=== PATIENT | male | born 1930 | race Caucasian/White ===

== ENCOUNTER 2018-07-10 21:38 | Inpatient (IN) | payer MEDICARE, OTHER ==
--- NOTE | 2018-07-10 23:36 | RAD ---
CHEST ONE VIEW 07/10/18 HISTORY: Chest pain. COMPARISON: 12/26/08. FINDINGS: Cardiac silhouette is magnified by projection. Pulmonary vasculature is unremarkable. Right hemidiaph ragm is slightly more elevated than on the prior exam. Mediastinum is midline with aortic calcificati on, postoperative changes, and a dual lead left subclavian cardiac electronic device. No lobar consol idation or evidence of pneumothorax. IMPRESSION: Chronic type findings. No active cardiopulmonary abnormalities are demonstrated. POS: [facility]
[2018-07-10 23:45] LABS: INR-International Normal Ratio 1.2; PTT 36.7 SEC (22.9-36.1); Prothrombin Time 15.3 SEC (12.0-14.7)
[2018-07-10 23:56] LABS: ALT (SGPT) 13 U/L (8-55); AST (SGOT) 19 U/L (5-34); Albumin 4.4 g/dL (3.4-4.8); Alkaline Phosphatase 72 U/L (40-150); Anion Gap 12 mmol/L (10-20); BUN (Urea Nitrogen) 20 mg/dL (8.4-25.7); Bilirubin, Total 0.9 mg/dL (0.2-1.2); CK (CPK) 80 U/L (30-200); Calc. Creatinine Clearance 0 mL/min (70-130); Calcium 9.5 mg/dL (7.8-10.44); Carbon Dioxide 30 mmol/L (23-31); Chloride 99 mmol/L (98-107); Estimated GFR-MDRD 46; Globulin 3.2 g/dL (2.4-3.5); Glucose 112 mg/dL (83-110); Potassium 4.5 mmol/L (3.5-5.1); Protein, Total 7.6 g/dL (5.8-8.1); Sodium 136 mmol/L (136-145)
[2018-07-11 00:02] LABS: CKMB 0.5 ng/mL (0-6.6); Troponin I Less than 0.010 ng/mL (< 0.028)
[2018-07-11 00:07] LABS: #Lymphocytes 0.8 thou/uL (1.20-3.40); #Monocytes 0.6 thou/uL (0.11-0.59); #Neutrophils 5.8 thou/uL (1.40-6.50); %Basophils 0.1 % (0.0-1.0); %Eosinophils 0.1 % (0.0-10.0); %Lymphocytes 10.6 % (21.0-51.0); %Monocytes 7.9 % (0.0-10.0); %Neutrophils 81.2 % (42.0-75.0); Hemoglobin 13.1 g/dL (14.0-18.0); Mean Corpuscular HGB CONC 34.2 g/dL (32.0-36.0); Mean Corpuscular Hemoglobin 32.2 pg (27.0-31.0); Mean Platelet Volume 9.2 fL (7.4-10.4); PLT Morphology Comment Appears Decreased; Platelet Count 70 thou/uL (130-400); RBC Morphology Normal; Red Blood Cell (RBC) Count 4.08 mill/uL (4.70-6.10); White Blood Cell (WBC) Count 7.1 thou/uL (4.8-10.8)
[2018-07-11 00:44] LABS: Bilirubin Negative (Negative); Blood, Urine Small (Negative); Clarity CLEAR (Clear); Glucose, Urine (Dipstick) Negative (Negative); Leukocyte Negative (Negative); Nitrite Negative (Negative); Protein, Urine (Dipstick) Negative (Neg-Trace); Specific Gravity, Urine 1.018 (1.002-1.036); Urobilinogen 0.2 mg/dL (0.2-1.0); pH, Urine 5.5 (5.0-9.0)
[2018-07-11 01:06] LABS: Bacteria/HPF None Seen HPF (None Seen); Hyaline Casts/LPF 0-3 HYALINE CAST LPF (0-3 Hyaline); Pathc Cast-AUWi Flag 0.29 (0-2.49); RBC/HPF 0-3 HPF (0-3); Squamous Epithelial 0-3 HPF (0-3); WBC/HPF 0-3 HPF (0-3)
[2018-07-11] MEDS ORDERED: Ondansetron ODT 4 MG TAB SL PRN (02:48)
[2018-07-11] MEDS ORDERED: Ondansetron HCl/PF 4 MG/2 ML Vial IVP PRN (02:48)
[2018-07-11 03:19] VITALS: BMI 20.6
--- NOTE | 2018-07-11 06:35 | HP ---
PRIMARY CARE PHYSICIAN: The patient goes to [facility]. CODE STATUS: FULL CODE. TIME OF EVALUATION: 4:15 a.m. CHIEF COMPLAINT: Numbness to fingertips. HISTORY OF PRESENT ILLNESS: This is an 88-year-old male patient with past medical history of diabete s, hyperlipidemia, hypertension who came to the hospital after having tingling and numbness in his fi ngertips on the left side more than the right side with no clear ____, no alleviating factors. He re ported the symptoms have been on and off. By the time of my interview the symptoms are improved. No significant associated weakness in any of the limbs, symptoms are reported as mild to moderate. REVIEW OF SYSTEMS: CONSTITUTIONAL: No fever, no chills. Generalized weakness. RESPIRATORY: No cough, sputum production, shortness of breath. CARDIOVASCULAR: No chest pain, palpitations, shortness of breath. GASTROINTESTINAL: No nausea, vomiting, diarrhea or abdominal pain. BOBBIN COIL WINDER: No dizziness or headache. The patient has bilateral fingers tingling and numbness. GENITOURINARY: No burning with urination. EXTREMITIES: No leg swelling. All other systems were reviewed and negative except for the findings mentioned above. PAST MEDICAL HISTORY: As mentioned in the HPI. PAST SURGICAL HISTORY: The patient has a pacemaker. PSYCHIATRIC HISTORY: Includes depression. SOCIAL HISTORY: Alcohol rarely. No drug use. No smoking history. ALLERGIES: No known drug allergies. MEDICATIONS: Please see medication reconciliation for details. PHYSICAL EXAMINATION: VITAL SIGNS: On presentation, blood pressure 144/72 with heart rate 65, respiratory rate was 16, tem perature 99.7, oxygen saturation was 94. GENERAL APPEARANCE: The patient is alert, oriented, no acute distress. HEENT: Eyes; normal conjunctivae. Moist oral mucosa. Anicteric. NECK: No JVD. RESPIRATORY: Bilaterally air entry. No rales, no wheezing. Symmetric expansion. CARDIOVASCULAR: Normal rate, regular rhythm. No murmurs, no gallop. No edema. ABDOMEN: Soft, normal bowel sounds. MUSCULOSKELETAL: Baseline range of motion and strength. No tenderness. SKIN: Warm and intact. No pallor, no rash. No redness. Peripheral pulses are present. NEUROLOGIC: Capillary refill is intact. Sensory; no evidence of any new focal weakness, though jose ent does report bilateral tingling in both hands. Cranial nerves seem to be intact. PSYCHIATRIC: The patient is in a good mood, alert and oriented, optimal judgment. EKG was discussed with the performing physician from here. The patient had an atrial fibrillation wi th controlled ventricular response in the rate of 64, some PVCs, atrial paced. Radiology was reviewed. Head CT, possible normal pressure hydrocephalus. Chest x-ray, no acute card iopulmonary findings. LABORATORY DATA: The patient has white count 7.1, hemoglobin 13, MCV 94, platelet count 70. Coagula tion: PT 15.3, INR 1.2, PTT 36.7. Chemistry: Sodium 136, potassium 4.5, chloride 99, carbon dioxid e 30, anion gap 12, BUN 20, creatinine 1.44. No previous values to compare to. Glucose 112, calcium 9.5. LFTs were normal. Troponin is negative. UA was done and was negative. ASSESSMENT AND PLAN: The patient will be placed in the hospital with following medical problems. 1. Possible transient ischemic attack versus lacunar stroke, patient has tingling in both hands, and this did not improving since yesterday, and symptoms have been on and off, undergo a stroke protocol except for the MRIs as the patient has a pacemaker. 2. Hyperlipidemia, reconcile home meds, and a low cholesterol diet is advised. 3. Uncontrolled hypertension. The patient has systolic blood pressure 144 on presentation, will all ow permissive hypertension given new presentation with neurological signs. 4. Borderline diabetes, keeping the patient on sliding scale coverage, adjust medications as needed. 5. Deep venous thrombosis prophylaxis.
--- NOTE | 2018-07-11 07:15 | CT ---
CT HEAD NONCONTRAST DATE: 07/10/18 HISTORY: Altered mental status. Numbness. COMPARISON: 12/26/08. FINDINGS: There is no evidence of acute intracranial hemorrhage or infarct. The ventricular system is slightly distended in relation to the degree of peripheral atrophy. Chronic ischemic small vessel disease with in the periventricular white matter of each cerebral hemisphere. No mass effect or shift of midline s tructures. Visible paranasal sinuses remain well aerated. IMPRESSION: Mild diffuse ventricular prominence without focal abnormality otherwise demonstrated. Clinical correl ation regarding other signs and symptoms of normal pressure hydrocephalus is required. POS: [facility]
[2018-07-11] MEDS ORDERED: Enoxaparin Sodium 40 MG/0.4 ML SYRINGE SC SCH (09:00)
[2018-07-11] MEDS ORDERED: Prevnar 13-Val Conj/PF 0.5 ML SYRINGE IM ONE (09:00)
[2018-07-11 09:30] LABS: #Lymphocytes 0.7 thou/uL (1.20-3.40); #Monocytes 0.7 thou/uL (0.11-0.59); %Basophils 0.5 % (0.0-1.0); %Lymphocytes 9.1 % (21.0-51.0); %Monocytes 9.8 % (0.0-10.0); %Neutrophils 80.6 % (42.0-75.0); Hemoglobin 13.4 g/dL (14.0-18.0); Mean Corpuscular HGB CONC 34.3 g/dL (32.0-36.0); Mean Corpuscular Hemoglobin 32.3 pg (27.0-31.0); Mean Corpuscular Volume 94.3 fL (78.0-98.0); Mean Platelet Volume 9.5 fL (7.4-10.4); Platelet Count 67 thou/uL (130-400); RBC Distribution Width 14.1 % (11.5-14.5); Red Blood Cell (RBC) Count 4.15 mill/uL (4.70-6.10); White Blood Cell (WBC) Count 7.5 thou/uL (4.8-10.8)
[2018-07-11] MEDS: Sodium Chloride 0.9% 1,000 ML IV SCH (09:39)
[2018-07-11] MEDS: Aspirin 325 mg Enteric Coated Tablet PO SCH (09:40)
[2018-07-11] MEDS: Amoxicillin/Potassium Clav 875 MG TAB PO SCH ×2 (09:40→21:02)
[2018-07-11 09:47] LABS: Cardiac Risk 3.3 (Less than 4.5)
--- NOTE | 2018-07-11 12:45 | ULT ---
ULTRASOUND CAROTID DOPPLER: HISTORY: TIA. COMPARISON: None. TECHNIQUE: Real-time, linton scale, and spectral analysis of the extracranial carotid and vertebral arteries. FINDINGS: The vessels are markedly tortuous. Severe atherosclerotic plaque of the right carotid bulge and lowe r volume of calcifications. Elevated peak systolic velocities in the internal carotid arteries on th e right. Elevated peak systolic velocities in the left internal carotid artery. Antegrade flow to both vertebral arteries. Right ICA/CCA ratio is 1.38 and left ICA/CCA ratio is 1.15. IMPRESSION: 50-69% stenosis both internal carotid arteries with severe atherosclerotic plaque. CT angiogram woul d be beneficial. POS: [facility]
--- NOTE | 2018-07-11 14:19 | PDOC.EVN ---
Event Note - Event Note Event Note: Seen and examined.Chart reviewed Admitted for possible stroke. Now with low grade fever without specific source. Add ASA.Check lipid panel.Neurology consult add Augmentin ,send blood aand urine cultures. Check ECHO,carotid US. Low platelets without specific reason. Pt on Eliquis at home but home meds not confirmed.DC Lovenox for now. may need abdomen scan to r/o Hepato-splenomegaly . am labs.
--- NOTE | 2018-07-11 15:14 | PDOC.EVN ---
Event Note - Event Note Event Note: ACP note care discussed with patient;s son Mr Cooper over the phone. Updated about his clinical diagnosis and expected prognosis. Discussed discharge options. he asked me if pt would need to go to a NH or is terminal. I told him that i suspect a CVA and Viral infection and diagnostic studies are underway. Son reports that his father is otherwise very active ,Also reported same by his care provider earlier today in room Remains full code for now as per my discussion with son. Will consult Palliative care team to follow along and addressing goals of care as needed. Total time spent in discussion of ACP goals 17 minutes.
[2018-07-11] MEDS ORDERED: Simvastatin 20 MG TAB PO SCH (21:00)
[2018-07-11] MEDS: Acetaminophen 325 MG TAB PO PRN (21:01)
[2018-07-11] MEDS: Atorvastatin Calcium 10 MG TAB PO SCH (21:02)
--- NOTE | 2018-07-11 23:51 | CON ---
DATE OF CONSULTATION: 07/11/2018 CONSULTING PHYSICIAN: Hospitalist service. IMPRESSION: 1. Possible mild cervical radiculopathy with neck pain and transient tingling in the hand. 2. Age-related microvascular changes of the brain atrophy, resulting in some mild memory difficulties. 3. Hearing loss. PLAN: 1. Continue aspirin 81 mg per day. 2. The patient can be discharged home under the care of his caregiver. Mr. Weaver is an 88-year-old man, who lives with assistance of a caregiver. His 4 years ago. He reports he developed some neck pain on the right side that concerned him. He started feeling some tingling in the fingertips of the hand. This lasted for an indeterminate period of time. He does not recall any radicular pain in the arm, does not recall any numbness of the face or leg, did not note any change in his gait. He admits that he has some balance difficulties for some indeterminate period of time. He had a CT of the brain done, which was reviewed. His carotid Doppler showed 50%-69% stenosis bilaterally. His lab work was all unremarkable. He has had a low-grade temperature of 100.3, but otherwise nothing remarkable has been present. PAST MEDICAL HISTORY: Otherwise, negative. ALLERGIES: None. SOCIAL HISTORY: No tobacco or alcohol use. FAMILY HISTORY: Noncontributory. REVIEW OF SYSTEMS: No complaint of chest pain, shortness of breath, headache, nausea, vomiting, or vertigo. PHYSICAL EXAMINATION: GENERAL: He is a thin elderly gentleman, lying in bed, watching television. HEENT: Pupils are equal. Conjunctivae clear. Oropharynx clear. NECK: No lymphadenopathy. EXTREMITIES: No cyanosis. NEUROLOGIC EXAM: He was alert and cooperative. His hearing was poor. His speech was fluent and clear. He followed commands appropriately. His muscle strength was quite good. Sensation was intact to light touch. He can walk independently. No abnormal movements were seen. LABORATORY STUDIES: EKG shows a paced rhythm. SUMMARY: I do not see any suggestive evidence of normal pressure hydrocephalus or transient ischemic attacks that sounds more like he presented with some mild radicular pain, but advised him to try Aleve as an outpatient. [facility]
[2018-07-12] MEDS: Sodium Chloride 0.9% 1,000 ML IV SCH ×2 (00:43→13:32)
[2018-07-12] MEDS: Acetaminophen 325 MG TAB PO PRN ×4 (04:18→20:53)
[2018-07-12 04:55] LABS: #Neutrophils 5.4 thou/uL (1.40-6.50); %Basophils 0.5 % (0.0-1.0); %Eosinophils 0.4 % (0.0-10.0); %Lymphocytes 13.5 % (21.0-51.0); %Monocytes 12.9 % (0.0-10.0); %Neutrophils 72.7 % (42.0-75.0); Hemoglobin 13.5 g/dL (14.0-18.0); Mean Corpuscular HGB CONC 34.8 g/dL (32.0-36.0); Mean Corpuscular Volume 91.7 fL (78.0-98.0); Mean Platelet Volume 10.9 fL (7.4-10.4); PLT Morphology Comment Appears Decreased; Platelet Count 25 thou/uL (130-400); RBC Distribution Width 14.1 % (11.5-14.5); Red Blood Cell (RBC) Count 4.22 mill/uL (4.70-6.10); White Blood Cell (WBC) Count 7.4 thou/uL (4.8-10.8)
[2018-07-12 05:19] LABS: Anion Gap 17 mmol/L (10-20); BUN (Urea Nitrogen) 22 mg/dL (8.4-25.7); Calc. Creatinine Clearance 38 mL/min (70-130); Calcium 8.9 mg/dL (7.8-10.44); Carbon Dioxide 21 mmol/L (23-31); Chloride 102 mmol/L (98-107); Estimated GFR-MDRD 59; Glucose 96 mg/dL (83-110); Potassium 4.7 mmol/L (3.5-5.1); Sodium 135 mmol/L (136-145)
[2018-07-12] MEDS: Aspirin 325 mg Enteric Coated Tablet PO SCH (08:54)
[2018-07-12] MEDS: Amoxicillin/Potassium Clav 875 MG TAB PO SCH (08:54)
[2018-07-12] MEDS: Lisinopril 10 MG TAB PO SCH (09:36)
[2018-07-12] MEDS ORDERED: Iopamidol 370 76% 100 ML VIAL ONE (10:09)
--- NOTE | 2018-07-12 12:47 | PDOC.PN ---
- Subjective Encounter Start Date: 07/12/18 Encounter Start Time: 12:43 Subjective: feels much better and is aware that he is in Hospital -: wants to be transferred to [facility] d/t insurance reasons -: denies any pain,diarrhea,dysuria - Objective Resuscitation Status: Resuscitation Status DNR:Do Not Resuscitate MAR Reviewed: Yes Vital Signs & Weight: Vital Signs (12 hours) Temp Pulse Resp BP BP Pulse Ox 07/12/18 12:00 99.5 F 63 16 102/53 L 94 L 07/12/18 09:36 112/53 L 07/12/18 08:00 100 F H 68 16 112/53 L 92 L 07/12/18 07:20 98.8 F 67 18 07/12/18 06:15 98.8 F 07/12/18 04:10 100.4 F H 73 18 173/73 H 91 L Weight Admit Weight 139 lb 11.2 oz Weight 139 lb 11.2 oz I&O: 07/11/18 07/12/18 07/13/18 06:59 06:59 06:59 Intake Total 925 300 Balance 925 300 Result Diagrams: 07/12/18 03:48 07/12/18 03:48 Additional Labs: Microbiology 07/11/18 00:25 Urine clean catch Urine Culture - Preliminary Gram Negative Amol Non-Hemolytic Streptococcus Laboratory Tests 07/11/18 09:13 Triglycerides 93 Cholesterol 117 LDL Cholesterol, Calc 63 HDL Cholesterol 35 Radiology Reviewed by me: Yes Phys Exam - Physical Examination Constitutional: NAD HEENT: PERRLA, moist MMs, sclera anicteric, oral pharynx no lesions Neck: no nodes, no JVD, supple, full ROM Respiratory: no wheezing, no rales, no rhonchi, clear to auscultation bilateral Cardiovascular: RRR, no significant murmur Gastrointestinal: soft, non-tender, no distention, positive bowel sounds Musculoskeletal: no edema, pulses present Neurological: non-focal, normal sensation, moves all 4 limbs Psychiatric: normal affect, A&O x 3 Skin: no rash Dx/Plan (1) Fever Code(s): R50.9 - FEVER, UNSPECIFIED Status: Acute (2) Sepsis Code(s): A41.9 - SEPSIS, UNSPECIFIED ORGANISM Status: Acute (3) UTI (urinary tract infection) Status: Acute (4) Thrombocytopenia Code(s): D69.6 - THROMBOCYTOPENIA, UNSPECIFIED Status: Acute (5) FAUSTO (acute kidney injury) Code(s): N17.9 - ACUTE KIDNEY FAILURE, UNSPECIFIED Status: Acute (6) Carotid stenosis Code(s): I65.29 - OCCLUSION AND STENOSIS OF UNSPECIFIED CAROTID ARTERY Status : Chronic Qualifiers: Laterality: bilateral Qualified Code(s): I65.23 - Occlusion and stenosis of bilateral carotid arteries (7) A-fib Code(s): I48.91 - UNSPECIFIED ATRIAL FIBRILLATION Status: Chronic Qualifiers: Atrial fibrillation type: paroxysmal Qualified Code(s): I48.0 - Paroxysmal atrial fibrillation (8) Pacemaker Code(s): Z95.0 - PRESENCE OF CARDIAC PACEMAKER Status: Chronic - Plan continue antibiotics, PT/OT, out of bed/ambulate, DVT proph w/SCDs Suspect UTI w sepsis-change Abx to Levaquin IV. await final CX results -: platelets even lower. was taken off of Lovenox yesterday.baseline unknown -: no overt bleeding.will check A/P CT to r/o hepatosplemomegaly -: other cell lines are intact. Pt on ASA low dose .monitor -: Will need to get CTA head & neck to check for carotids & R/O CVA * .Cont full dose ASA for now. Statin dos eincreased * Pt requesting transfer to [facility] d/t finanacial reasons. HD table. will arrange\ * If stays here, will get imaging as above and AM labs * Home meds reconciled Review of Systems - Review of Systems Constitutional: negative: fever, chills, sweats, weakness, malaise, other ENT: negative: Ear Pain, Ear Discharge, Nose Pain, Nose Discharge, Nose Congestion, Mouth Pain, Mouth Swelling, Throat Pain, Throat Swelling, Other Respiratory: negative: Cough, Dry, Shortness of Breath, Hemoptysis, SOB with Excertion, Pleuritic Pain, Sputum, Wheezing Cardiovascular: negative: chest pain, palpitations, orthopnea, paroxysmal nocturnal dyspnea, edema, light headedness, other Gastrointestinal: negative: Nausea, Vomiting, Abdominal Pain, Diarrhea, Constipation, Melena, Hematochezia, Other Genitourinary: negative: Dysuria, Frequency, Incontinence, Hematuria, Retention , Other Musculoskeletal: negative: Neck Pain, Shoulder Pain, Arm Pain, Back Pain, Hand Pain, Leg Pain, Foot Pain, Other Neurological: negative: Weakness, Numbness, Incoordination, Change in Speech, Confusion, Seizures, Other - Medications/Allergies Allergies/Adverse Reactions: Allergies Allergy/AdvReac Type Severity Reaction Status Date / Time No Known Drug Allergies Allergy Verified 07/11/18 02:46 Medications: Current Medications Acetaminophen (Tylenol) 650 mg PO Q4H PRN PRN Reason: Headache/Fever or Pain Last Admin: 07/12/18 08:54 Dose: 650 mg Aspirin (Ecotrin) 325 mg PO DAILY [facility] Last Admin: 07/12/18 08:54 Dose: 325 mg Atorvastatin Calcium (Lipitor) 10 mg PO HS [facility] Last Admin: 07/11/18 21:02 Dose: 10 mg Sodium Chloride (Normal Saline 0.9%) 1,000 mls @ 75 mls/hr IV .[id number] [facility] Last Admin: 07/12/18 00:43 Dose: 1,000 mls Levofloxacin 500 mg/ Device 100 mls @ 100 mls/hr IVPB 0900 [facility] Last Admin: 07/12/18 09:36 Dose: 100 mls Lisinopril (Zestril) 10 mg PO DAILY [facility] Last Admin: 07/12/18 09:36 Dose: 10 mg Metoprolol Succinate (Toprol Xl) 25 mg PO BID [facility] Last Admin: 07/12/18 09:36 Dose: 25 mg Pantoprazole Sodium (Protonix) 40 mg PO DAILY [facility] Last Admin: 07/12/18 09:36 Dose: 40 mg Sertraline HCl (Zoloft) 50 mg PO DAILY [facility] Last Admin: 07/12/18 09:36 Dose: 50 mg Sodium Chloride (Flush - Normal Saline) 10 ml IVF Q12HR [facility] Last Admin: 07/12/18 08:52 Dose: Not Given Sodium Chloride (Flush - Normal Saline) 10 ml IVF PRN PRN PRN Reason: Saline Flush Trazodone HCl (Desyrel) 50 mg PO HS [facility]
--- NOTE | 2018-07-12 16:07 | CT ---
CT ABDOMEN AND PELVIS WITH CONTRAST: 07/12/18 HISTORY: Cirrhosis. Prostate cancer. COMPARISON: None. FINDINGS: Calcified granulomas right lung base. Extensive coronary artery calcifications. No pericardial effusi on. Posttreatment changes in the pelvis. Moderate diverticular disease sigmoid colon without active curre nt inflammation. Mild submucosal edema of the ascending colon may reflect congestive changes. There is extensive ather osclerotic plaque of the aortoiliac system. Extensive atherosclerotic plaque of the mesenteric vessel s. There is a focal infrarenal abdominal saccular aneurysm measuring up to 2.8 cm with associated dis section at this level, chronic. No hydronephrosis. Punctate calculus superior pole right renal collecting system. There is a hypodens ity hepatic segment 8 around the hepatic vein to the right portal vein incompletely evaluated on this examination. There are severe degenerative facet changes of the lower lumbar spine. Moderate degenerative changes of both hips. The spleen measures 13.5 cm in length. Moderate sized sliding hiatal hernia. IMPRESSION: 1. Moderate splenomegaly. Patent portal vein. 2. Hepatic segment 8 adjacent to the portal vein is a hypodensity with small cluster of adjacent hypodensities that almost appear to be biliary in nature. A nonemergent MRI liver protocol in six mo nths recommended. 3. 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 There is isoattenuating contrast on both the inside and outside of the small intimal flap. This is chronic as there are calcifications a long the margin. 4. Severe atherosclerotic plaque with narrowing of both the superior mesenteric artery and radha c artery origins, greater than 50% narrowing. 5. Submucosal edema of the ascending colon. This may reflect a component of colitis although giv en the lack of adjacent inflammatory changes, congestive changes from portal hypertension versus low grade ischemia is more likely. 6. Nonobstructive calculus inferior pole right renal collecting system. 7. Multiple peripheral hypodensities of the right kidney too small to fully characterize. 8. Small to moderate sliding hiatal hernia. POS: [facility]
--- NOTE | 2018-07-12 16:26 | CT ---
CT BRAIN WITHOUT CONTRAST CT ANGIOGRAM HEAD WITH CONTRAST CT ANGIOGRAM NECK WITH CONTRAST: Date: 07/12/18 HISTORY: CVA. Dizziness. COMPARISON: Ultrasound carotid Doppler from prior day. FINDINGS: CT angiogram of head and neck performed after the intravenous administration of contrast. 3D renderin g provided. CT brain was performed without contrast prior. Mild atrophy. No acute hemorrhage or infarct. No midline shift. These findings are unchanged from yesterday. There are multiple mildly prominent AP window lymph nodes. There are severe emphysematous changes in the lung apices. No acute fracture or malalignment of the cervical spine. The left vertebral artery is dominant. There is absent enhancement of the right vertebral artery at t he level of C4 to its origin. There is a high grade stenosis of the left vertebral artery due to narrowing of the foramen transvers arium at the level of C4. There is a focal area of 50% narrowing of the left vertebral artery at the level of C3 foramen transversarium. Basilar artery is patent. [place] [facility] [place] patent without thrombosis or aneurysm formation. No signif icant stenosis. Origin of both common carotid arteries patent. Both common carotid arteries patent. Using NASCET crit eria, there is approximately 70% narrowing of the proximal left internal carotid artery due to a comb ination of soft and calcific plaque. Remainder of the internal carotid artery is patent. Using NASCET criteria, there is approximately 50% narrowing of the proximal right internal carotid artery due to calcific and soft plaque. IMPRESSION: 1. Multilevel high grade stenosis of the right vertebral artery with complete occlusion from the valentin gin to the mid neck. 2. Multilevel high grade stenosis of the left vertebral artery. 3. Approximately 70% stenosis proximal left internal carotid artery at the carotid bulb for a length of 3.0 mm. 4. Approximately 50% stenosis of the proximal right internal carotid artery at the bifurcation. 5. Severe emphysematous changes. 6. Advanced degenerative changes at the cervical spine. POS: [facility]
--- NOTE | 2018-07-12 18:38 | CON ---
DATE OF CONSULTATION: 07/12/2018 REASON FOR CONSULTATION: Fever. 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 No headaches, visual symptoms, sore throat, odynophagia, dysphagia, no cough or chest pain, no dyspnea, no abdominal pain, diarrhea, or genitourinary symptoms. No joint symptoms. PAST MEDICAL HISTORY: Prostate cancer in remission after prostatectomy in [place], type 2 diabetes, hypertension, AICD placement for management of ischemic cardiomyopathy, coronary bypass graft surgery, COPD. SOCIAL HISTORY: Former smoker, quit in 2001. Retired. Drinks occasionally. ALLERGIES: None. CURRENT MEDICATIONS: Tylenol, Ecotrin, Lipitor, levofloxacin, Zestril, Toprol, Protonix, Zoloft, trazodone. PHYSICAL EXAMINATION: VITAL SIGNS: T-max 102.5 on 07/11/2018. He is now 99.5, BP 102/53, pulse 63, respirations 16, O2 sat 94%. SKIN: Peripheral IV access. No Cuellar catheter. No lymphadenopathy. HEENT: Ocular movements conjugate. Oral cavity normal. Numerous teeth in place with some decay. NECK: Supple, no jugular venous distention. HEART: S1, S2, without murmurs, regular rate. ABDOMEN: Soft, without ascites. No bladder distention or organomegaly. LUNGS: Faint basilar inspiratory crackles, right and left side. No wheezing. EXTREMITIES: No joint inflammatory activity. Pulses are 1+ in dorsalis pedis. Able to move extremities equally. NEUROLOGIC: Cognitive function appears to be intact. LABORATORY DATA: White cell count 7.1, hemoglobin 13, MCV 94, platelets 70,000 , now down to 25,000. We do not have some air evaluated. INR 1.2. Sodium 136 , creatinine 1.44 and 1.17. Liver profile normal. Albumin 4.4, globulin 2.2. Urinalysis with small blood, otherwise normal. Urine culture with gram negative rods and non-hemolytic strep less than 50 and 10 thousand respectively. Two sets of blood culture, no growth thus far. Reports there is an evident abdomen and pelvis CT scan. A CT of [place] angio with contrast and an echocardiogram, the echocardiogram report showed EF 55%. Pacer wire, mild regurgitation in valves. No vegetations. Brain CT and chest x-ray with no acute findings, just chronic findings in the lungs. An abdomen and pelvis CT has been completed. I believe this is a noncontrast study. I looked over the images and did not see any evidence of overt abnormalities. Some kidney cysts. Neurology consultation from this morning with no remarkable findings. ASSESSMENT: Paresthesias in distal right and left hands, more consistent with carpal tunnel syndrome and now with fever, which was identified after admission without obvious source. DISCUSSION: Differential diagnosis includes viral syndrome and not yet disclosed inflammatory intraabdominal process. Urinary tract does not seem to be the source of this fever, but will wait for the final interpretation of the CT scan and I did not see any evidence of stones or obstruction. Sometimes, he may have urinary infections with normal urinalysis, but that is uncommon, usually associated with obstructive lesions. Number of colony-forming units is less than the threshold for diagnosing UTIs. He does have quite significant thrombocytopenia, we do not have a pathologist review of PB smear to evaluate for microangiopathy. The other concern would be with bacteremia associated with AICD infection or colonization. To rule out that we will have to wait on the final results of the blood cultures in the next few days. The last PSA was undetectable and therefore recrudescence of prostate cancer is unlikely. MTDD
[2018-07-12] MEDS: Atorvastatin Calcium 10 MG TAB PO SCH (20:44)
[2018-07-12] MEDS: traZODone HCl 50 MG TAB PO SCH (20:44)
[2018-07-13] MEDS: Acetaminophen 325 MG TAB PO PRN ×3 (00:13→16:53)
[2018-07-13] MEDS: Sodium Chloride 0.9% 1,000 ML IV SCH (00:37)
[2018-07-13 05:13] LABS: Anion Gap 15 mmol/L (10-20); BUN (Urea Nitrogen) 23 mg/dL (8.4-25.7); Calc. Creatinine Clearance 39 mL/min (70-130); Calcium 8.4 mg/dL (7.8-10.44); Carbon Dioxide 22 mmol/L (23-31); Chloride 104 mmol/L (98-107); Estimated GFR-MDRD 59; Glucose 102 mg/dL (83-110); Potassium 3.5 mmol/L (3.5-5.1); Sodium 137 mmol/L (136-145)
[2018-07-13 06:51] LABS: Band 28 % (5-11); Eosinophils 2 % (0-10); Hemoglobin 11.3 g/dL (14.0-18.0); Lymphocytes 13 % (21-51); MDiff Complete? YES; Mean Corpuscular HGB CONC 34.6 g/dL (32.0-36.0); Mean Corpuscular Hemoglobin 32.2 pg (27.0-31.0); Mean Corpuscular Volume 93.1 fL (78.0-98.0); Monocytes 13 % (0-10); Neutrophil 44 % (42-75); PLT Morphology Comment Appears Decreased; Platelet Count 43 thou/uL (130-400); RBC Distribution Width 13.9 % (11.5-14.5); Red Blood Cell (RBC) Count 3.51 mill/uL (4.70-6.10); White Blood Cell (WBC) Count 3.5 thou/uL (4.8-10.8)
[2018-07-13] MEDS: Lisinopril 10 MG TAB PO SCH (08:35)
[2018-07-13] MEDS: Aspirin 325 mg Enteric Coated Tablet PO SCH (08:35)
[2018-07-13] MEDS ORDERED: Aspirin 81 mg Enteric Coated Tablet PO SCH (11:30)
--- NOTE | 2018-07-13 11:32 | PDOC.PN ---
- Subjective Encounter Start Date: 07/13/18 (f/u tingling) Encounter Start Time: 11:30 Subjective: Pt without complaints today - reports the tingling is improved, nearly -: resolved. States his right shoulder hurts - known, and low back - -: which occurs intermittently in the past. - Objective Resuscitation Status: Resuscitation Status DNR:Do Not Resuscitate Vital Signs & Weight: Vital Signs (12 hours) Temp Pulse Resp BP BP Pulse Ox 07/13/18 08:35 112/53 L 07/13/18 08:00 97.7 F 63 16 07/13/18 07:56 97.7 F 63 16 155/66 H 90 L 07/13/18 03:35 99.2 F 60 14 135/60 91 L 07/13/18 00:20 100.2 F H 59 L 14 135/60 91 L Weight Admit Weight 139 lb 11.2 oz Weight 139 lb 11.2 oz I&O: 07/12/18 07/13/18 07/14/18 06:59 06:59 06:59 Intake Total 925 1775 Balance 925 1775 Result Diagrams: 07/13/18 04:13 07/13/18 04:13 Additional Labs: Accuchecks 07/13/18 06:19 POC Glucose 84 EKG Reviewed by me: Yes (tele sinus a pacing 60's) Phys Exam - Physical Examination Constitutional: NAD Respiratory: no wheezing, no rales, no rhonchi distant heart sounds Cardiovascular: RRR, no significant murmur distant heart sounds Gastrointestinal: soft, non-tender, no distention, positive bowel sounds Musculoskeletal: no edema ttp along the bilateral lower lumbar parsaspinal muscles no ttp along the lumbar spinous processes Neurological: non-focal, moves all 4 limbs Psychiatric: normal affect Deviation from normal: tearing of skin on left elbow Dx/Plan (1) FAUSTO (acute kidney injury) Code(s): N17.9 - ACUTE KIDNEY FAILURE, UNSPECIFIED Status: Resolved (2) Fever Code(s): R50.9 - FEVER, UNSPECIFIED Status: Acute Qualifiers: Encounter type: subsequent encounter (3) Thrombocytopenia Code(s): D69.6 - THROMBOCYTOPENIA, UNSPECIFIED Status: Acute (4) Carotid stenosis Code(s): I65.29 - OCCLUSION AND STENOSIS OF UNSPECIFIED CAROTID ARTERY Status : Chronic Qualifiers: Laterality: bilateral Qualified Code(s): I65.23 - Occlusion and stenosis of bilateral carotid arteries (5) Diabetes mellitus Code(s): E11.9 - TYPE 2 DIABETES MELLITUS WITHOUT COMPLICATIONS Status: Chronic Qualifiers: Diabetes mellitus type: type 2 Diabetes mellitus termite control servicer insulin use: without fci use Diabetes mellitus complication status: without complication Qualified Code(s): E11.9 - Type 2 diabetes mellitus without complications (6) Dyslipidemia Code(s): E78.5 - HYPERLIPIDEMIA, UNSPECIFIED Status: Chronic (7) Hypertension Code(s): I10 - ESSENTIAL (PRIMARY) HYPERTENSION Status: Chronic Qualifiers: Hypertension type: essential hypertension Qualified Code(s): I10 - Essential (primary) hypertension (8) Pancytopenia Code(s): D61.818 - OTHER PANCYTOPENIA Status: Acute - Plan * Appreciate ID consult - follow cultures, will continue levaquin and change to PO, monitor fever curve * Carotid disease - reviewed study with [facility] and carotids are patent - no intervention indicated * Thrombocytopenia - consult Heme. Will d/c aspirin for now as platelets are only 43k. Of note, pt with pancytopenia today - this may be related to viral process vs antibiotic effect. Recheck in AM. * constipation - start colace bid * d/c IVF as taking PO * nocturnal leg cramps - trial of magnesium at night * Ucx with contaminant, and blood cx negative so far. * * dvt prophy - scds * gi prophy - not indicated. * code status DNR * * reviewed plan of care with patient and his son, no questions or furthr needs at end of eval. * Pt remains at high risk in current condition
--- NOTE | 2018-07-13 20:24 | EKG ---
Test Reason : AMS Blood Pressure : / mmHG Vent. Rate : 064 BPM Atrial Rate : 064 BPM P-R Int : 234 ms QRS Dur : 096 ms QT Int : 414 ms P-R-T Axes : 072 045 -37 degrees QTc Int : 427 ms Atrial-paced rhythm with prolonged AV conduction with Premature atrial complexes with Abberant conduc tion Septal infarct , age undetermined Abnormal ECG Confirmed by MI MARQUEZ DO ([id number]), film editor supervisor ARIADNE IRVING ([id number]) on 07/13/2018 8:23:30 PM Referred By: JIMMY Confirmed By:MI MARQUEZ DO
[2018-07-13] MEDS: Atorvastatin Calcium 10 MG TAB PO SCH (21:21)
[2018-07-13] MEDS: traZODone HCl 50 MG TAB PO SCH (21:22)
[2018-07-13] MEDS: Docusate 100 MG CAP PO SCH (21:22)
[2018-07-13] MEDS: Magnesium Oxide 400 MG TAB PO SCH (21:22)
[2018-07-14] MEDS: Acetaminophen 325 MG TAB PO PRN ×2 (00:43→21:57)
[2018-07-14 04:43] LABS: Anion Gap 14 mmol/L (10-20); BUN (Urea Nitrogen) 20 mg/dL (8.4-25.7); Calc. Creatinine Clearance 40 mL/min (70-130); Calcium 8.4 mg/dL (7.8-10.44); Carbon Dioxide 23 mmol/L (23-31); Chloride 104 mmol/L (98-107); Estimated GFR-MDRD 62; Glucose 117 mg/dL (83-110); Potassium 3.5 mmol/L (3.5-5.1); Sodium 137 mmol/L (136-145)
[2018-07-14 06:35] LABS: Band 5 % (5-11); Eosinophils 1 % (0-10); Hemoglobin 10.8 g/dL (14.0-18.0); Lymphocytes 29 % (21-51); MDiff Complete? YES; Mean Corpuscular HGB CONC 35.2 g/dL (32.0-36.0); Mean Corpuscular Hemoglobin 32.5 pg (27.0-31.0); Mean Corpuscular Volume 92.3 fL (78.0-98.0); Mean Platelet Volume 10.4 fL (7.4-10.4); Monocytes 21 % (0-10); Neutrophil 37 % (42-75); PLT Morphology Comment Appears Decreased; Platelet Count 42 thou/uL (130-400); Reactive Lymphocytes 7 % (0-10); Red Blood Cell (RBC) Count 3.31 mill/uL (4.70-6.10); White Blood Cell (WBC) Count 3.2 thou/uL (4.8-10.8)
[2018-07-14] MEDS: Lisinopril 10 MG TAB PO SCH (08:26)
[2018-07-14] MEDS: Docusate 100 MG CAP PO SCH ×2 (08:26→21:54)
[2018-07-14] MEDS ORDERED: Aspirin 81 mg Enteric Coated Tablet PO SCH (09:00)
[2018-07-14] MEDS ORDERED: Polyethylene Glycol 3350 17 GM Packet PO PRN (10:25)
--- NOTE | 2018-07-14 10:25 | PDOC.PN ---
- Subjective Encounter Start Date: 07/14/18 (f/u fever) Encounter Start Time: 10:21 Subjective: Pt notes times of hallucinations, states it's when he has fevers -: denies any cp/sob/cough/n/v/abd pain or any new sx - Objective Resuscitation Status: Resuscitation Status DNR:Do Not Resuscitate Vital Signs & Weight: Vital Signs (12 hours) Temp Pulse Resp BP BP Pulse Ox 07/14/18 08:26 112/53 L 07/14/18 08:00 98.6 F 60 16 07/14/18 07:38 98.6 F 60 16 137/63 91 L 07/14/18 06:00 99.4 F 60 16 141/63 H 92 L 07/14/18 02:05 98.7 F 07/14/18 00:00 100.5 F H 60 18 161/70 H 93 L Weight Admit Weight 139 lb 11.2 oz Weight 139 lb 11.2 oz I&O: 07/13/18 07/14/18 07/15/18 06:59 06:59 06:59 Intake Total 1775 1136 840 Balance 1775 1136 840 Result Diagrams: 07/14/18 03:38 07/14/18 03:38 Additional Labs: Accuchecks 07/13/18 17:23 POC Glucose 105 EKG Reviewed by me: Yes (tele - 80's sinus occ PVC's) Phys Exam - Physical Examination Constitutional: NAD Respiratory: no wheezing, no rales, no rhonchi, clear to auscultation bilateral Cardiovascular: RRR, no significant murmur Gastrointestinal: soft, non-tender, no distention, positive bowel sounds Musculoskeletal: no edema Neurological: non-focal, moves all 4 limbs Psychiatric: normal affect, A&O x 3 Skin: no rash Dx/Plan (1) FAUSTO (acute kidney injury) Code(s): N17.9 - ACUTE KIDNEY FAILURE, UNSPECIFIED Status: Resolved (2) Fever Code(s): R50.9 - FEVER, UNSPECIFIED Status: Acute Qualifiers: Encounter type: subsequent encounter (3) Carotid stenosis Code(s): I65.29 - OCCLUSION AND STENOSIS OF UNSPECIFIED CAROTID ARTERY Status : Chronic Qualifiers: Laterality: bilateral Qualified Code(s): I65.23 - Occlusion and stenosis of bilateral carotid arteries (4) Diabetes mellitus Code(s): E11.9 - TYPE 2 DIABETES MELLITUS WITHOUT COMPLICATIONS Status: Chronic Qualifiers: Diabetes mellitus type: type 2 Diabetes mellitus senior living insulin use: without ferry terminal agent use Diabetes mellitus complication status: without complication Qualified Code(s): E11.9 - Type 2 diabetes mellitus without complications (5) Dyslipidemia Code(s): E78.5 - HYPERLIPIDEMIA, UNSPECIFIED Status: Chronic (6) Hypertension Code(s): I10 - ESSENTIAL (PRIMARY) HYPERTENSION Status: Chronic Qualifiers: Hypertension type: essential hypertension Qualified Code(s): I10 - Essential (primary) hypertension (7) Pancytopenia Code(s): D61.818 - OTHER PANCYTOPENIA Status: Acute - Plan * * Appreciate ID consult - cx negative, no acute findings on CT scan, will check with Dr. Cisneros re: d/c geovanna. Manage fever and monitor mental status. * D/w Dr. Cisneros - can d/c levgatito. Pt being started on doxycycline due to other possible infections that may be causing hypersplenism. * * Carotid disease - reviewed study with [facility] and carotids are patent - no intervention indicated * * Pancytopenia - WBC stable - may be from either source of fever or same cause as thrombocytopenia. Heme consult for today. * * constipation - continue colace bid * nocturnal leg cramps - continue magnesium at night * Ucx repeated after abx - no growth so far, and blood cx negative at 72 hours * * dvt prophy - scds * gi prophy - not indicated. * code status DNR * * reviewed plan of care with patient, no questions or further needs at end of eval. * Pt remains at high risk in current condition.
[2018-07-14 12:00] LABS: Hep C IgG Ab Non-Reactive (NonReactive); Hep C Index 0.31 S/CO (0-0.79)
--- NOTE | 2018-07-14 12:49 | CON ---
DATE OF CONSULTATION: 07/14/2018. HISTORY OF PRESENT ILLNESS: Mr. Weaver is an 88-year-old male who presented with confusion as well a s numbness in his fingertips. He was not taken his temperature at home, but he thinks he had a fever at home and this may be the cause of the symptoms. He was brought in by his caregiver he says, alth ough he says that he would have preferred to go to the [facility] system because all of his phys icians are at [facility]. On admission, there was some concern that he might had a TIA; however , he has had recurrent low grade fevers and that is the cause for the numbness in his fingers as well as the confusion. He states he is less confused today, although he is disoriented to place. He christian s know the date and he does know his name. He is able to give me a good history and states that he h as never been told in the past that he had thrombocytopenia; however, on admission his platelets were 70,000. We have no old blood counts on him. He did get IV resuscitated and his platelets went down to 25,000, now they are up to 42,000. He denies any bleeding. He has had ecchymoses on his upper e xtremities, but states this is chronic and he has had this for years. He does take aspirin as an out patient, although this is being held on admission here. He did get at least one dose of low dose pro phylactic Lovenox, but this has also been discontinued here. He denies any nosebleeds. No gum bleed ing. No rectal bleeding and no hematuria. He denies any ecchymoses anywhere other than his upper ex tremities. PAST MEDICAL HISTORY: 1. Diabetes mellitus. 2. Possible dementia, although this appears to be somewhat unlikely and we do not have this confirme d. 3. Hyperlipidemia. 4. Hypertension. CURRENT MEDICATIONS: 1. Tylenol p.r.n. 2. Lipitor 10 mg p.o. at bedtime. 3. Colace 100 mg p.o. b.i.d. 4. Doxycycline 100 mg p.o. b.i.d. 5. Lactulose 20 grams p.o. every day p.r.n. 6. Zestril 10 mg p.o. daily. 7. Magnesium oxide 400 mg p.o. at bedtime. 8. Toprol-XL 25 mg p.o. b.i.d. 9. Protonix 40 mg p.o. daily. 10. MiraLax p.r.n. 11. Zoloft 50 mg p.o. daily. 12. Trazodone 50 mg p.o. at bedtime. ALLERGIES: No known drug allergies. SOCIAL HISTORY: He states he lives alone. He denies current tobacco or alcohol use. Apparently, hi s son is quite supportive and has called multiple times. He does admit to having a caregiver who bro ught him to the hospital. FAMILY HISTORY: Negative for hematologic malignancy as far as the patient knows. REVIEW OF SYSTEMS: Otherwise, 10-point review of systems is negative. The patient is quite insisten t that he feels well and would like to go home. PHYSICAL EXAMINATION: VITAL SIGNS: T-max 100.5, T-current 98.6, pulse 60, respirations 16, O2 sat 91% on room air, blood p ressure 137/63. GENERAL: He is alert, awake, and oriented x2, he is not quite sure of the location, but he does note that he is not at [facility] and would like to be at [facility], because that is where all his records are. CARDIOVASCULAR: Regular rhythm. LUNGS: Clear to auscultation. ABDOMEN: Hypoactive bowel sounds. Soft, nontender, nondistended. EXTREMITIES: No edema. No petechia. Multiple ecchymoses noted on his left and right upper extremit y, greater on the left. These may be from blood draws. There are no ecchymoses noted on his trunk o r on his lower extremities. LABORATORY DATA: White blood cell count 7.1 on admission, now 3.2, hemoglobin 13.1 on admission, now 10.8, platelets 70,000 on admission, now 42,000. No schistocytes seen on his peripheral smear. Karthik trophils 37%, bands 5%, lymphocytes 29%, monocytes 21%. ASSESSMENT: Mr. Weaver is an 88-year-old male. 1. Thrombocytopenia, this is likely to be chronic. 2. Pancytopenia after IV hydration. 3. Low-grade fever with delirium. PLAN: 1. I reviewed the peripheral smear with the lab and there are no signs of microangiopathic changes. I think this does rule out TTP. He has no signs of schistocytes on his smear. Likewise, he has ravi kopenia now, but I think some of this is delusional. I suspect if we can get old blood counts from [facility] that his thrombocytopenia is chronic. We will request these. He does not have any si gns of HIT as his platelets were low on the day of admission and he has not been hospitalized recentl y according to his history. He may in fact have early myelodysplastic syndrome, but again knowing ho w chronic the thrombocytopenia, it would be important and we will request these blood counts. 2. He is being seen by Infectious Disease and his antibiotics are being changed accordingly. 3. I think he will need follow up for this as an outpatient as I think it is more of a chronic probl em. I think he would like to be seen in the [facility] and I have talked to the case manag emrik about making him a follow up within a week to 10 days of discharge from here. 4. We will follow his platelets while he is in house to make sure they did not get any lower. 5. I would avoid any medications that lower platelets on this hospitalization if possible. 6. Discontinue aspirin for platelets consistently less than 50. 7. He is not on any Lovenox, but is ambulating and is using sequential compression devices while in the bed. I discussed the importance of this with the nurses.
[2018-07-14 14:02] LABS: Reference Lab Name LABCORP
[2018-07-14 14:03] LABS: Ref Lab Test Ordered EHRILCHIA/ ANAPLASMA; Reference Lab Name LABCORP
[2018-07-14 14:04] LABS: Ref Lab Test Ordered RICKETSIA IgG/IgM
--- NOTE | 2018-07-14 16:04 | PRG ---
DATE OF SERVICE: 07/14/2018 SUBJECTIVE: Mr. Weaver is in no acute distress, little bit of hallucinations. No headaches, no shor tness of breath, no abdominal pain. No diarrhea. PHYSICAL EXAMINATION: VITAL SIGNS: T-max 99.4-100.5, currently 98.6, blood pressure 130/60, pulse 60, O2 sat 93%, which i s about average. GENERAL: The exam demonstrates normal skin. LUNGS: Sounds are clear. HEART EXAM: Normal without murmurs. Regular rate. ABDOMEN: Soft, nontender. No edema. Oriented LABORATORY DATA AND IMAGING: White cell count 3.2, hemoglobin 10.8, MCV 92, platelets 42,000, which is up from 07/12/2018. Chemistry with creatinine of 1.11, glucose 117. Liver profile normal. Hepat itis C nonreactive. Microbiology with repeat urine cultures, no growth at 24 hours. Blood culture n egative. Abdomen and pelvis CT, interpretation has been transcribed. Moderate splenomegaly, portal vein appeared patent, hypodensity in the hepatic segment portal vein, small cluster of adjacent hypodensities. An MRI of the liver is recommended in a few months for followup. Submucosal edema i n ascending colon noted, congestive changes from portal hypertension are considered. 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 Again, differential d iagnosis includes AICD, bacterial colonization versus acquired infection such as intracellular bacter ia including Rickettsia, Ehrlichia, Anaplasma versus chronic liver disease with portal hypertension, splenomegaly, hypersplenism and thrombocytopenia, leukopenia. Submit hepatitis serology, wait on fin al results of blood cultures. Start doxycycline and submit serologies for intracellular bacteria.
[2018-07-14] MEDS: traZODone HCl 50 MG TAB PO SCH (21:54)
[2018-07-14] MEDS: Magnesium Oxide 400 MG TAB PO SCH (21:54)
[2018-07-14] MEDS: Atorvastatin Calcium 10 MG TAB PO SCH (21:54)
[2018-07-14] MEDS: Doxycycline 100 MG CAP PO SCH (21:55)
[2018-07-15 04:42] LABS: Anion Gap 14 mmol/L (10-20); BUN (Urea Nitrogen) 19 mg/dL (8.4-25.7); Calc. Creatinine Clearance 40 mL/min (70-130); Calcium 8.6 mg/dL (7.8-10.44); Carbon Dioxide 25 mmol/L (23-31); Chloride 104 mmol/L (98-107); Estimated GFR-MDRD 62; Glucose 98 mg/dL (83-110); Potassium 3.7 mmol/L (3.5-5.1); Sodium 139 mmol/L (136-145)
[2018-07-15 05:53] LABS: Band 2 % (5-11); Eosinophils 5 % (0-10); Hemoglobin 11.3 g/dL (14.0-18.0); Lymphocytes 38 % (21-51); MDiff Complete? YES; Mean Corpuscular HGB CONC 34.9 g/dL (32.0-36.0); Mean Corpuscular Hemoglobin 32.1 pg (27.0-31.0); Mean Platelet Volume 9.9 fL (7.4-10.4); Monocytes 14 % (0-10); Neutrophil 41 % (42-75); PLT Morphology Comment Appears Decreased; Platelet Count 66 thou/uL (130-400); RBC Distribution Width 13.6 % (11.5-14.5); Red Blood Cell (RBC) Count 3.53 mill/uL (4.70-6.10); White Blood Cell (WBC) Count 3.4 thou/uL (4.8-10.8)
--- NOTE | 2018-07-15 09:03 | PDOC.PN ---
- Subjective Encounter Start Date: 07/15/18 Encounter Start Time: 09:01 Subjective: alert, oriented, no complaints - Objective Resuscitation Status: Resuscitation Status DNR:Do Not Resuscitate MAR Reviewed: Yes Vital Signs & Weight: Vital Signs (12 hours) Temp Pulse Resp BP Pulse Ox 07/15/18 07:46 98.6 F 61 16 119/56 L 93 L 07/15/18 04:00 98.7 F 60 18 143/65 H 92 L 07/15/18 02:00 98.6 F 60 18 141/65 H 90 L 07/14/18 21:54 99.5 F 60 18 164/72 H 93 L Weight Admit Weight 139 lb 11.2 oz Weight 139 lb 11.2 oz I&O: 07/14/18 07/15/18 07/16/18 06:59 06:59 06:59 Intake Total 1136 1200 Balance 1136 1200 Result Diagrams: 07/15/18 04:05 07/15/18 04:05 Phys Exam - Physical Examination Neck: no JVD Respiratory: clear to auscultation bilateral Cardiovascular: RRR, no significant murmur Gastrointestinal: soft, positive bowel sounds Musculoskeletal: no edema Neurological: non-focal Dx/Plan (1) Fever Code(s): R50.9 - FEVER, UNSPECIFIED Status: Acute Qualifiers: Encounter type: subsequent encounter (2) Pancytopenia Code(s): D61.818 - OTHER PANCYTOPENIA Status: Acute (3) UTI (urinary tract infection) Status: Acute (4) A-fib Code(s): I48.91 - UNSPECIFIED ATRIAL FIBRILLATION Status: Chronic Qualifiers: Atrial fibrillation type: paroxysmal Qualified Code(s): I48.0 - Paroxysmal atrial fibrillation (5) Carotid stenosis Code(s): I65.29 - OCCLUSION AND STENOSIS OF UNSPECIFIED CAROTID ARTERY Status : Chronic Qualifiers: Laterality: bilateral Qualified Code(s): I65.23 - Occlusion and stenosis of bilateral carotid arteries (6) Diabetes mellitus Code(s): E11.9 - TYPE 2 DIABETES MELLITUS WITHOUT COMPLICATIONS Status: Chronic Qualifiers: Diabetes mellitus type: type 2 Diabetes mellitus director long term care insulin use: without halfway use Diabetes mellitus complication status: without complication Qualified Code(s): E11.9 - Type 2 diabetes mellitus without complications (7) Dyslipidemia Code(s): E78.5 - HYPERLIPIDEMIA, UNSPECIFIED Status: Chronic (8) Hypertension Code(s): I10 - ESSENTIAL (PRIMARY) HYPERTENSION Status: Chronic Qualifiers: Hypertension type: essential hypertension Qualified Code(s): I10 - Essential (primary) hypertension - Plan confusing picture. discuss with Dr Cisneros -: cont doxycycline -: cont [place]/ statin -: cont off ASA * .
[2018-07-15] MEDS: Doxycycline 100 MG CAP PO SCH ×2 (09:25→21:00)
[2018-07-15] MEDS: Docusate 100 MG CAP PO SCH ×2 (09:29→21:00)
[2018-07-15] MEDS: Lisinopril 10 MG TAB PO SCH (09:30)
[2018-07-15] MEDS: traZODone HCl 50 MG TAB PO SCH (21:00)
[2018-07-15] MEDS: Atorvastatin Calcium 10 MG TAB PO SCH (21:00)
[2018-07-15] MEDS: Magnesium Oxide 400 MG TAB PO SCH (21:00)
[2018-07-16 04:42] LABS: Hemoglobin 11.3 g/dL (14.0-18.0); Mean Corpuscular HGB CONC 34.1 g/dL (32.0-36.0); Mean Corpuscular Hemoglobin 31.3 pg (27.0-31.0); Mean Corpuscular Volume 91.5 fL (78.0-98.0); Mean Platelet Volume 9.3 fL (7.4-10.4); Platelet Count 87 thou/uL (130-400); RBC Distribution Width 13.7 % (11.5-14.5); Red Blood Cell (RBC) Count 3.61 mill/uL (4.70-6.10); White Blood Cell (WBC) Count 4.3 thou/uL (4.8-10.8)
[2018-07-16] MEDS: Doxycycline 100 MG CAP PO SCH ×2 (08:49→21:32)
[2018-07-16] MEDS: Lisinopril 10 MG TAB PO SCH (08:50)
[2018-07-16] MEDS: Docusate 100 MG CAP PO SCH ×2 (08:50→21:32)
--- NOTE | 2018-07-16 09:33 | PDOC.PN ---
- Subjective Encounter Start Date: 07/16/18 Encounter Start Time: 09:31 Subjective: feels much better, up and about - Objective Resuscitation Status: Resuscitation Status DNR:Do Not Resuscitate MAR Reviewed: Yes Vital Signs & Weight: Vital Signs (12 hours) Temp Pulse Resp BP BP BP Pulse Ox 07/16/18 08:50 152/65 H 07/16/18 07:59 98.3 F 60 12 152/65 H 92 L 07/16/18 03:43 99.5 F 62 16 173/74 H 92 L 07/16/18 00:44 99.5 F 60 18 164/69 H 92 L Weight Admit Weight 139 lb 11.2 oz Weight 139 lb 11.2 oz I&O: 07/15/18 07/16/18 07/17/18 06:59 06:59 06:59 Intake Total 1200 540 Balance 1200 540 Result Diagrams: 07/16/18 03:49 07/15/18 04:05 Phys Exam - Physical Examination Neck: no JVD Respiratory: clear to auscultation bilateral Cardiovascular: no significant murmur, irregular Gastrointestinal: soft, non-tender, positive bowel sounds Musculoskeletal: no edema Dx/Plan (1) Fever Code(s): R50.9 - FEVER, UNSPECIFIED Status: Acute Qualifiers: Encounter type: subsequent encounter (2) Pancytopenia Code(s): D61.818 - OTHER PANCYTOPENIA Status: Acute (3) UTI (urinary tract infection) Status: Acute (4) A-fib Code(s): I48.91 - UNSPECIFIED ATRIAL FIBRILLATION Status: Chronic Qualifiers: Atrial fibrillation type: paroxysmal Qualified Code(s): I48.0 - Paroxysmal atrial fibrillation (5) Carotid stenosis Code(s): I65.29 - OCCLUSION AND STENOSIS OF UNSPECIFIED CAROTID ARTERY Status : Chronic Qualifiers: Laterality: bilateral Qualified Code(s): I65.23 - Occlusion and stenosis of bilateral carotid arteries (6) Diabetes mellitus Code(s): E11.9 - TYPE 2 DIABETES MELLITUS WITHOUT COMPLICATIONS Status: Chronic Qualifiers: Diabetes mellitus type: type 2 Diabetes mellitus watermelon harvesting supervisor insulin use: without watermelon harvesting supervisor use Diabetes mellitus complication status: without complication Qualified Code(s): E11.9 - Type 2 diabetes mellitus without complications (7) Dyslipidemia Code(s): E78.5 - HYPERLIPIDEMIA, UNSPECIFIED Status: Chronic (8) Hypertension Code(s): I10 - ESSENTIAL (PRIMARY) HYPERTENSION Status: Chronic Qualifiers: Hypertension type: essential hypertension Qualified Code(s): I10 - Essential (primary) hypertension - Plan pancytopenia improving steadily, no recurrence of fever- cont doxycycline -: discuss with ID * .
[2018-07-16] MEDS: Atorvastatin Calcium 10 MG TAB PO SCH (21:32)
[2018-07-16] MEDS: traZODone HCl 50 MG TAB PO SCH (21:32)
[2018-07-16] MEDS: Magnesium Oxide 400 MG TAB PO SCH (21:32)
[2018-07-17 05:55] LABS: Hemoglobin 11.7 g/dL (14.0-18.0); Mean Corpuscular HGB CONC 33.3 g/dL (32.0-36.0); Mean Corpuscular Volume 93.3 fL (78.0-98.0); Mean Platelet Volume 9.2 fL (7.4-10.4); Platelet Count 122 thou/uL (130-400); RBC Distribution Width 13.8 % (11.5-14.5); Red Blood Cell (RBC) Count 3.75 mill/uL (4.70-6.10); White Blood Cell (WBC) Count 5.5 thou/uL (4.8-10.8)
[2018-07-17] MEDS: Docusate 100 MG CAP PO SCH (08:10)
[2018-07-17] MEDS: Lisinopril 10 MG TAB PO SCH (08:10)
[2018-07-17] MEDS: Doxycycline 100 MG CAP PO SCH (08:10)
--- NOTE | 2018-07-17 08:44 | DIS ---
TRANSFER OF CARE NOTE PRIMARY CARE PROVIDER: Dr. Madden at [facility]. He is not sure who at [facility] takes car e of him now. DATE OF ADMISSION: 07/11/2018 DATE OF DISCHARGE: 07/17/2018 FINAL DIAGNOSES: 1. A rickettsial infection. 2. Pancytopenia. 3. Hypertension. 4. Dyslipidemia. 5. Atrial fibrillation. DISCHARGE MEDICATIONS: New doxycycline 100 mg p.o. b.i.d. x14 days, aspirin 81 mg a day, Lipitor 10 mg a day, lisinopril 10 mg a day, trazodone 50 mg at bedtime, Protonix 40 mg a day, Zoloft 50 mg a da y, Toprol 25 mg p.o. b.i.d. ALLERGIES: None. DIET: Heart healthy. PENDING AT THE TIME OF DISCHARGE: Rickettsial titers. CODE STATUS: DNR. HOSPITAL COURSE: The patient admitted out of the emergency room at [place] to the [facility] with numbness in the fingertips. He was felt to have a transient ischemic attack, placed in the hospital. Brain CT, no acute intracranial lesion. Chest x-ray; no acute cardiorespiratory fi ndings. Carotid Doppler 59-70% stenosis of both carotid arteries. In 24 hours he was noted to have a low grade temperature, thrombocytopenia. Echo was ordered. Augmentin was started. CT of the abdo men and pelvis on 07/12/2018 showed moderate splenomegaly, patent portal vein. Initial laboratory: White count 7.1, hemoglobin 13.1, platelet count low at 70,000. Blood cultures were ordered, which were no growth. Urine culture revealed nonhemolytic Streptococci gram negative r od, not quantitated, because if it was polymicrobial. CT angiography of the brain was done which rev ealed stenosis of right vertebral artery, left vertebral artery, 70% stenosis of left internal caroti d artery, 50% stenosis of right internal carotid artery. The patient had temperatures early of 100.5 and 100.5. Serial laboratory revealed a progressive pancytopenia with a low platelet count of 25,00 0 on 07/12/2018. White count dropped to 3.2 on 07/14/2018. On 07/11/2018 he was seen in consultatio n by Dr. Zachariah Del Rio who do not see any evidence for TIA are normal pressure hydrocephalus. He was seen by ALEXANDRO Paniagua, who recommended consultation with Hematology who saw no acute hematology probl em. The patient continued to improve. The patient's pancytopenia continued to improve. He is afebr ile. He is doing well. He is desirous of going home. He is being discharged on 2 weeks of antimicr obial therapy with doxycycline. He has been advised to follow up with his PCP in 1 week, he will nee d a CBC at that time. His blood cultures have been negative. His serology is nonreactive for hepati tis C. Miscellaneous rickettsial titers are pending. No procedures were done.
[2018-07-17 11:55] VITALS: TEMP 97.3
[2018-07-17 12:55] VITALS: BP 155/68
[2018-07-17 13:16] LABS: Hep B Surface AG-Rflx Sendout Negative (Negative); Hepatitis B Core IgM AB Negative (Negative); Hepatitis B Core Total Negative (Negative); Hepatitis B Surface AB-Sendout Non Reactive (.)
== END 2018-07-17 13:33 | disposition home or self-care (01) | DRG 868 ==
LOC: ERS 21:38 → INTOOBSV 07-11 00:15 → 2SE 07-11 00:15 → OBSVTOIN 07-12 08:53
PROVIDERS: ADMIT Hospitalist; ATTEND Hospitalist
DX: A79.9 Rickettsiosis, unspecified (principal); D61.818 Other pancytopenia; N17.9 Acute kidney failure, unspecified; I10 Essential (primary) hypertension; E78.5 Hyperlipidemia, unspecified; E11.9 Type 2 diabetes mellitus without complications; F32.9 Major depressive disorder, single episode, unspecified; D72.819 Decreased white blood cell count, unspecified; D69.6 Thrombocytopenia, unspecified; Z66 Do not resuscitate; I65.29 Occlusion and stenosis of unspecified carotid artery; I48.0 Paroxysmal atrial fibrillation; I25.5 Ischemic cardiomyopathy; Z87.891 Personal history of nicotine dependence; Z85.46 Personal history of malignant neoplasm of prostate; Z95.810 Presence of automatic (implantable) cardiac defibrillator
CPT/HCPCS: 36415; 36416; 70450; 70496; 70498; 71045; 74177; 80048; 80053; 80061; 81001; 82140; 82553; 84484; 85025; 85027; 85610; 85730; 86704; 86705; 86706; 86707; 86803; 87040; 87086; 87340; 87350; 90471; 90670; 93005; 93306; 93880; A4216; G0009; G8978-GP-CL; G8979-GP-CJ; G8987-GO-CI; G8988-GO-CI; G8989-GO-CI; J1956